=== PATIENT | female | born 1930 | race Caucasian/White ===

== ENCOUNTER 2016-11-29 07:16 | Emergency (ER) | payer MEDICARE, OTHER ==
[2014-09-04 10:36] VITALS: BMI 21.1
[~2016-11-29 07:16] MED LIST: CALCIUM CITRATE PO; FIBER SMART PO; FLAXSEED OIL1000 MG PO; FOLATE0.4 MG PO; Flaxseed Oil PO; MULTIPLE VITAMI1 TA1 PO; PEPCID20 MG PO; PRESERVISION SO1 CAP PO; PRILOSEC20 MG PO; PROBIO PO; PROBIOTIC; RENA-VITE TABL0.8 MG PO; STOOL SOFTENER240 MG PO; [UNRECOGNIZED DRUG - OTHER] SL
== END 2016-11-29 08:45 | disposition home or self-care (01) ==
LOC: D.ER 07:16
DX: S59.901A Unspecified injury of right elbow, initial encounter (principal); W19.XXXA Unspecified fall, initial encounter; Y93.89 Activity, other specified; Y92.89 Other specified places as the place of occurrence of the external cause; G20 Parkinson's disease

== ENCOUNTER 2018-07-24 01:43 | Emergency (ER) | payer MEDICARE, OTHER ==
[~2018-07-24] VITALS: Ht 165.1 cm; Wt 68.2 kg
[2018-07-24 01:50] VITALS: Ht 165.1 cm; Wt 68.2 kg
[2018-07-24] MEDS ORDERED: PROZAC20 MG PO (01:56)
[2018-07-24] MEDS ORDERED: XALATAN 0.0052.5 ML (01:56)
[2018-07-24] MEDS ORDERED: CARBIDOPA-LEVO1 EAC2 PO (01:56)
[2018-07-24] MEDS ORDERED: MIRALAX17 GM PO (01:57)
[2018-07-24] MEDS ORDERED: DETROL LA4 MG PO (01:57)
[2018-07-24] MEDS ORDERED: SEROQUEL50 MG PO (01:57)
[2018-07-24 02:40] LABS: APPEARANCE CLEAR (CLEAR); BILIRUBIN NEGATIVE (NEGATIVE); COLOR YELLOW (YELLOW); GLUCOSE NEGATIVE (NEGATIVE); KETONE SMALL mg/dL (NEGATIVE); NITRITE NEGATIVE (NEGATIVE); PROTEIN NEGATIVE (NEGATIVE); UROBILINOGEN NORMAL (NORMAL)
[2018-07-24 02:44] LABS: BASOPHILS 0.5 % (0-2); EOSINOPHILS 2.3 % (0-7); HEMATOCRIT 38.7 % (36.0-48.0); HEMOGLOBIN 12.5 g/dL (12-16); IMMATURE GRANULOCYTES 0.2 % (0-5); LYMPHOCYTES 31.3 % (15-50); MCH 31.1 pg (26.0-34.0); MCHC 32.3 g/dL (31.0-37.0); MCV 96.3 fL (80.0-100.0); MEAN PLATELET VOLUME 9.1 fL (7.4-10.4); MONOCYTES 12.7 % (2-11); PLATELET COUNT 221 10x3/uL (130-400); RBC 4.02 10x6/uL (4.00-5.40); WBC 5.8 10x3/uL (4.8-10.8)
[2018-07-24 02:58] LABS: ALBUMIN 3.1 g/dL (3.4-5.0); ANION GAP 10.4 mmol/L (8-16); BILIRUBIN - TOTAL 0.29 mg/dL (0.2-1.3); CALCIUM 8.3 mg/dL (8.5-10.1); CARBON DIOXIDE 30.1 mmol/L (21.0-32.0); CREATININE - SERUM 1.1 mg/dL (0.6-1.3); POTASSIUM - SERUM 4.5 mmol/L (3.5-5.1); PROTEIN - SERUM 6.3 g/dL (6.4-8.2)
[2018-07-24 03:52] VITALS: BP 150/61
== END 2018-07-24 03:52 | disposition home or self-care (01) ==
LOC: D.ER 01:43
PROVIDERS: Emergency Medicine
DX: G24.09 Other drug induced dystonia (principal); R13.10 Dysphagia, unspecified